=== PATIENT | male | born 1995 | race Caucasian/White ===

== ENCOUNTER 2020-04-22 01:06 | Emergency (ER) | payer OTHER ==
[2020-04-22] MEDS ORDERED: NA CHLORIDE 0.9% 1,000 ML ONE ×2 (01:56→02:56)
[2020-04-22 02:15] LABS: Absolute Lymphocytes (CBC) 1.4 K/uL (0.7-4.9); Basophils % 0.4 % (0-1.3); Hematocrit 42.6 % (39.6-49.0); Lymphocytes % 13.5 % (15.3-44.8); MPV 9.2 fL (7.6-11.3); RBC Red Blood Cell Count 4.88 M/uL (4.33-5.43)
[2020-04-22 02:16] LABS: Protime INR 1.1
[2020-04-22 02:42] LABS: ALT/SGPT 73 U/L (12-78); AST/SGOT 52 U/L (15-37); Albumin 4.1 g/dL (3.4-5.0); Alkaline Phosphatase 65 U/L (45-117); BUN Blood Urea Nitrogen 26 mg/dL (7-18); Bicarbonate 24 mmol/L (21-32); Bilirubin Direct 0.1 mg/dL (0-0.2); Bilirubin Total 0.3 mg/dL (0.2-1.0); Glucose Level 95 mg/dL (74-106); Magnesium 2.3 mg/dL (1.8-2.4); Potassium 3.7 mmol/L (3.5-5.1); Protein, Total 8.4 g/dL (6.4-8.2); Sodium Level 137 mmol/L (136-145); Troponin (Emerg Dept Use Only) < 0.02 ng/mL (0.0-0.045)
[2020-04-22 02:43] LABS: Creatine Phosphokinase 1666 U/L (39-308)
[2020-04-22 03:12] LABS: Barbiturates NEGATIVE (NEGATIVE); Benzodiazepines NEGATIVE (NEGATIVE); Cocaine NEGATIVE (NEGATIVE); METHAMPHETAM NEGATIVE (NEGATIVE); Methadone NEGATIVE (NEGATIVE); Opiates NEGATIVE (NEGATIVE); Phencyclidine NEGATIVE (NEGATIVE); THC Cannibis NEGATIVE (NEGATIVE)
[2020-04-22 03:45] LABS: Urine Blood NEGATIVE (NEG); Urine Glucose NEGATIVE (NEG); Urine Protein NEGATIVE (NEG); Urine Specific Gravity >1.030 (1.005-1.030)
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
[2020-04-22 04:26] VITALS: O2SAT 100
[2020-04-22 04:27] VITALS: TEMP 98.9
[2020-04-22 04:29] VITALS: BP 128/65
--- NOTE | 2020-04-22 07:16 | EKG ---
Test Date: 2020-04-22 Test Time: 01:52:54 Hand Router Operator: RR MEASUREMENT RESULTS: Intervals: Rate: 82 CT: 164 QRSD: 88 QT: 370 QTc: 432 [place]: P: 67 CT: 164 QRS: 50 T: 42 INTERPRETIVE STATEMENTS: Normal sinus rhythm Early repolarization Normal ECG Compared to ECG 07/29/2003 14:40:00 Early repolarization now present Electronically Signed On 04-22-20 07:15:35 CDT by Bradley French
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
== END 2020-04-22 04:07 | disposition home or self-care (01) ==
LOC: ER 01:06
DX: E86.0 Dehydration (principal); M62.82 Rhabdomyolysis
CPT/HCPCS: 96361; 93005; 85025; 80048; 36415; 83735; 82550; 85610; 80076; 80307 ×8; 81003; 84484; 70450; 72125; 71045; 96360; 99284; J7030 ×2